=== PATIENT | female | born 1980 | race Hispanic/Latino ===

== ENCOUNTER 2022-05-06 11:01 | Emergency (ER) | payer OTHER ==
--- OUTSIDE RECORDS SUMMARY | 2022-05-06 11:05 | XMS REPORT | Continuity of Care Document ---
:1980 Author Organization [facility] t Address [address] [place] [address] Care Team Providers Name Role Phone FOUND, NOT Primary Care Physician Unavailable Kristina ROWLAND Attending Clinician Unavailable Vineet Colunga Attending Clinician Unavailable Sukhdeep Admitting Clinician Unavailable Payers Payer Name Policy Type Policy Number Effective Date Expiration Date S ource Problems Condition Condition Condition Status Onset Resolution Last Treating Co mments Source Name Details Category Date Date Treatment Clinician Date Problem Condition [facility] Cyst of Problem Active [facility] Abdominal Problem Active [facility] Allergies, Adverse Reactions, Alerts Allergy Allergy Status Severity Reaction(s) Onset Inactive Treating Comm ents Source Name Type Date Date Clinician NO KNOWN Allergy Active Unknown [facility] ALLERGY to 3-24 S substanc 00:00: Health e 00 No Known DA Active U 2014-12 [facility]ie [facility] 00:00: [address] No Known DA Active U 2014-12 [facility] Allergie 0-27 [facility] s 00:00: [address] Center Social History Social Habit Start Date Stop Date Quantity Comments Source Sex Assigned At [birth year] Female [facility] Health 00:00:00 00:00:00 Smoking Status Start Date Stop Date Source Unknown if ever smoked [facility] Medications Ordered Filled Start Stop Current Ordering Indication Dosage Frequency Signature Comments Components Source Medication Medication Date Date Medication? Clinician (SIG) Name Name Cephalexin 2020-0 No 500mg MASTER U (Keflex) 5-[address] 500 Mg CAP 14:29: Elizabe 00 th Cephalexin 2020-0 No 500mg Twice A CHR ISTU (Keflex) 5-05 Day S 500 Mg CAP 14:29: Health 00 Hydralazine 2020-0 No 10mg MASTER U Hcl 5-[address] (Apresoline 14:28: Elizab e ) 10 Mg TAB 00 th Metoclopram 2020-0 No 10mg MASTER U vanessa Hcl 5-[address] (Reglan) 10 14:28: Elizab e Mg TAB 00 th Hydralazine 2020-0 No 10mg Four Times [facility] Hcl 5-05 Daily S (Apresoline 14:28: Health ) 10 Mg TAB 00 Metoclopram 2020-0 No 10mg Three AFTAB TU vanessa Hcl 5-05 Times A S (Reglan) 10 14:28: Day Health Mg TAB 00 Dicyclomine 2020-0 No 20mg MASTER U Hcl 3-[address] (Bentyl) 20 08:53: Elizab e Mg TAB 00 th Dicyclomine 2020-0 No 20mg MASTER U Hcl 3-[address] (Bentyl) 20 08:53: Elizab e Mg TAB 00 th Dicyclomine 2020-0 No 20mg Four Times [facility] Hcl 3-24 Daily S (Bentyl) 20 08:53: Health Mg TAB 00 Dicyclomine 2020-0 No 20mg Four Times [facility] Hcl 3-24 Daily S (Bentyl) 20 08:53: Health Mg TAB 00 Vital Signs Vital Name Observation Time Observation Value Comments Source Body Temperature 2020-04-05 14:56:00 98.0 [degF] [facility] Rate 2020-04-05 14:56:00 74 /min [facility] Respiratory rate 2020-04-05 14:56:00 18 /min [facility] [employer] BP Systolic 2020-04-05 14:56:00 186 mm[Hg] [facility] BP Diastolic 2020-04-05 14:56:00 110 mm[Hg] [facility] Heart Rate 2020-04-05 14:51:00 74 /min [facility] [employer] Respiratory rate 2020-04-05 14:51:00 18 /min [facility] [employer] [facility] BP Systolic 2020-04-05 14:51:00 186 mm[Hg] [facility] BP Diastolic 2020-04-05 14:51:00 110 mm[Hg] [facility] Weight 2020-04-05 11:38:00 153.31 [lb_av] [facility] BMI (Body Mass Index) 2020-04-05 11:38:00 27.2 kg/m2 [facility] Heart Rate 2020-02-23 09:17:00 76 /min [facility] Respiratory rate 2020-02-23 09:17:00 16 /min [employer] [facility] BP Systolic 2020-02-23 09:17:00 163 mm[Hg] [facility] BP Diastolic 2020-02-23 09:17:00 99 mm[Hg] [facility] Body Temperature 2020-02-23 07:09:00 97.9 [degF] [facility] Heart Rate 2020-02-23 07:09:00 62 /min [facility] Respiratory rate 2020-02-23 07:09:00 20 /min [facility] BP Systolic 2020-02-23 07:09:00 162 mm[Hg] [facility] BP Diastolic 2020-02-23 07:09:00 112 mm[Hg] [facility] Procedures Procedure Date / Time Performed Performing Clinician [facility] e Computed tomography of 2020-02-23 00:00:00 [facility] abdomen and pelvis with contrast Plan of Care Planned Activity Planned Date Details Comments Source Future Scheduled Test Bacterial urine [facility] culture [code = Jenny 630-4] Future Scheduled Test Bacterial urine [facility] culture [code = Jenny 630-4] Goal Patient referral [facility] [code = 5305086 ] Jenny Goal Patient referral [facility] [code = 3845745 ] Jenny Goal Patient referral [facility] [code = 4462800 ] Jenny Instructions Acute Abdomen (Belly [facility] S [facility] Pain), Adult (DC) Jenny Instructions Ovarian Cyst (DC) [facility] t. Jenny Instructions High Blood Pressure [facility] in Adults Jenny Instructions Urinary Tract [facility] Infection, Adult (DC) Elizab eth Encounters Start End Encounter Admission Attending Care Care Encounter Source Date/Time Date/Time Type Type Clinicians Facility Department ID 2020-07-01 Inpatient [facility] ER [id number] [facility] 19:20:00 [id number] [facility] 2020-05-05 Inpatient [facility] ER [id number] [facility] 20:34:00 [id number] [facility] 2020-04-05 Inpatient MUNIRA LOMBARDO [id number] [facility] 11:34:00 [facility] 2020-02-23 Inpatient MUNIRA ROWLAND [id number] [facility] 06:11:00 IVERSON [id number] [facility] 2021-05-06 2021-05-06 Emergency EM Dillon, [facility] ER [id number] [facility] 10:22:00 12:00:00 Aries [id number] [facility] 2020-04-05 2020-04-05 Departed JANIA LOMBARDO [id number] [facility] 11:50:00 14:57:[address] 2020-04-05 2020-04-05 Departed CHRISTHUNG LOMBARDO [id number] [facility] 11:50:00 14:57:[address] [facility] [address] Room [facility] 2020-02-23 2020-02-23 Registered CHRISTHUNG LOMBARDO AE00 [id number] [facility] 06:17:00 06:17:[address] 2020-02-23 2020-02-23 Registered CHRISTHUNG LOMBARDO AE00 [id number] [facility] 06:17:00 06:17:[address] Results Test Description Test Time Test Comments Results Result Comments Source COMPREHENSIVE METABOLIC PANEL 2020-05-05 21:46:00 Test Item Value Reference Range Interpretation Comme nts SODIUM (test code = NA) 135 MMOL/L 133-145 N POTASSIUM (test code = K) 2.9 MMOL/L 3.6-5.2 LL CHLORIDE (test code = CL) 100 MMOL/L 100-108 N CARBON DIOXIDE (test code = 23 MMOL/L 22-32 N CO2) GLUCOSE (test code = GLU) 115 MG/DL 65-99 H Re sults of this assay method may be falsely depressed orelevated if p atient is taking sulfasal azine. BLOOD UREA NITROGEN (test code 7 MG/DL 6-20 N = BUN) GLOMERULAR FILTRATION RATE 99 58-135 N R eporting units: (test code = GFR) mL/min/1.7 3m\S\2 (Modified MDRD Formula) CREATININE (test code = CREAT) 0.66 MG/DL 0.60-1.00 N TOTAL PROTEIN (test code = 7.6 G/DL 6.4-8.2 N PROT) ALBUMIN (test code = ALB) 3.5 G/DL 3.4-5.0 N GLOBULIN (test code = GLOB) 4.1 G/DL 1.5-3.8 H ALBUMIN/GLOBULIN RATIO (test 0.9 1.1-2.2 L code = A/G) CALCIUM (test code = CA) 8.5 MG/DL 8.7-10.5 L BILIRUBIN TOTAL (test code = 0.3 MG/DL 0.0-1.0 N BILT) SGOT/AST (test code = AST) 13 Units/L 15-37 L R esults of this assay method may be falsely depressed orelevated if p atient is taking sulfasal azine. SGPT/ALT (test code = ALT) 16 Units/L 30-65 L R esults of this assay method may be falsely depressed orelevated if p atient is taking sulfasal azine. ALKALINE PHOSPHATASE TOTAL 57 Units/L 50-136 N (test code = ALKP) URIC [id number] 21:46:00 Test Item Value Reference Range Interpretation Comments URIC ACID (test code = URIC) 2.7 MG/DL 2.6-6.0 N [id number] 21:46:00 Test Item Value Reference Range Interpretation Comments MAGNESIUM (test code = MAG) 1.8 MG/DL 1.8-2.4 N THYROID STIMULATING [id number] 21:46:00 Test Item Value Reference Range Interpretation Comments THYROID STIMULATING 0.55 0.42-5.47 N Micro-In ternational HORMONE (test code = TSH) Un its/L CPK-MB [id number] 21:46:00 Test Item Value Reference Range Interpretation Comments CK (test code = 37 Units/L 26-192 N CKT) CKMB (test code = < 0.5 NG/ML 0.0-3.6 N CKMB sugge stive of CKMBT) non-AMI; MB Ind ex is not reported. CV CALL [id number] 21:46:00 Test Item Value Reference Range Interpretation Comments CV CALL CHEM (test code = CVC) COMPREHENSIVE METABOLIC [id number] 21:46:00 Test Item Value Reference Range Interpretation Comments SODIUM (test code = 135 MMOL/L 133-145 N NA) POTASSIUM (test code = 2.9 MMOL/L 3.6-5.2 LL K) CHLORIDE (test code = 100 MMOL/L 100-108 N CL) CARBON DIOXIDE (test 23 MMOL/L 22-32 N code = CO2) GLUCOSE (test code = 115 MG/DL 65-99 H Results of this assay GLU) method may be f alsely depressed orele vated if patient is t aking sulfasalazine. BLOOD UREA NITROGEN 7 MG/DL 6-20 N (test code = BUN) GLOMERULAR FILTRATION 99 58-135 N Report ing units: RATE (test code = GFR) mL/mi n/1.73m\S\2 (Modified MDRD Formula) CREATININE (test code 0.66 MG/DL 0.60-1.00 N = CREAT) TOTAL PROTEIN (test 7.6 G/DL 6.4-8.2 N code = PROT) ALBUMIN (test code = 3.5 G/DL 3.4-5.0 N ALB) GLOBULIN (test code = 4.1 G/DL 1.5-3.8 H GLOB) ALBUMIN/GLOBULIN RATIO 0.9 1.1-2.2 L (test code = A/G) CALCIUM (test code = 8.5 MG/DL 8.7-10.5 L CA) BILIRUBIN TOTAL (test 0.3 MG/DL 0.0-1.0 N code = BILT) SGOT/AST (test code = 13 Units/L 15-37 L Result s of this assay AST) method may be f alsely depressed orele vated if patient is t aking sulfasalazine. SGPT/ALT (test code = 16 Units/L 30-65 L Result s of this assay ALT) method may be f alsely depressed orele vated if patient is t aking sulfasalazine. ALKALINE PHOSPHATASE 57 Units/L 50-136 N TOTAL (test code = ALKP) URIC [id number] 21:46:00 Test Item Value Reference Range Interpretation Comments URIC ACID (test code = URIC) 2.7 MG/DL 2.6-6.0 N [id number] 21:46:00 Test Item Value Reference Range Interpretation Comments MAGNESIUM (test code = MAG) 1.8 MG/DL 1.8-2.4 N THYROID STIMULATING [id number] 21:46:00 Test Item Value Reference Range Interpretation Comments THYROID STIMULATING 0.55 0.42-5.47 N Micro-In ternational HORMONE (test code = TSH) Un its/L CPK-MB [id number] 21:46:00 Test Item Value Reference Range Interpretation Comments CK (test code = 37 Units/L 26-192 N CKT) CKMB (test code = < 0.5 NG/ML 0.0-3.6 N CKMB sugge stive of CKMBT) non-AMI; MB Ind ex is not reported. CV CALL [id number] 21:46:00 Test Item Value Reference Range Interpretation Comments CV CALL CHEM (test Called Results c alled to and read code = CVC) back by RAYO DANIELSON RN;.for analyte (s): POTASSIUM .at 2 146 - 05/05/20; by DPeggy LAB.MG. UA RFLX MICROSCOPIC [id number] 21:30:00 Test Item Value Reference Range Interpretation Comments UA COLOR (test code = COLU) YELLOW YELLOW UA APPEARANCE (test code = CLEAR CLEAR APPU) UA GLUCOSE DIPSTICK (test NEGATIVE mg/dL NEGATIVE code = DGLUU) UA BILIRUBIN DIPSTICK (test NEGATIVE NEGATIVE code = BILU) UA KETONE DIPSTICK (test 150 mg/dL NEGATIVE A code = KETU) UA SPECIFIC GRAVITY (test 1.015 1.001-1.035 N code = SGU) UA BLOOD DIPSTICK (test code NEGATIVE NEGATIVE = ESSIE) UA PH DIPSTICK (test code = 7.0 5.5-7.0 N NENITA) UA PROTEIN DIPSTICK (test NEGATIVE mg/dL NEGATIVE code = PROU) UA UROBILINOGEN DIPSTICK NORMAL mg/dL NORMAL (test code = URO) UA NITRITE DIPSTICK (test NEGATIVE NEGATIVE code = JASON) UA LEUKOCYTE ESTERASE NEGATIVE NEGATIVE DIPSTICK (test code = LEUU) UA COMMENT (test code = VOLUME 10-12 ML COMU) URINE SPECIMEN DESCRIPTION Clean Catch (test code = UASPEC) UA WBC (test code = WBCU) < 10 #/hpf <10 UA SQUAMOUS CELLS (test code > 100 #/lpf <100 A = SQU) UA CULTURE NEEDED? (test Criteria not met code = UACULT) Indication for culture: Suprapubic PainURINE SOURCE: Clean CatchDRUG OF ABUSE SCREEN [id number] 21:30:00 Test Item Value Reference Interpretation Comments Range UR COCAINE (test NEGATIVE NEGATIVE code = COCAU) UR MDMA (test code = NEGATIVE NEGATIVE MDMAQLU) UR CANNABINOIDS POSITIVE NEGATIVE A If confirmat ory testing (test code = CANU) required, contact laboratory. UR AMPHETAMINE (test NEGATIVE NEGATIVE code = AMPHU) UR BARBITURATE QUAL NEGATIVE NEGATIVE (test code = BARBQLU) UR BENZODIAZEPINE NEGATIVE NEGATIVE (test code = BENZU) UR OPIATES QUAL NEGATIVE NEGATIVE (test code = OPIAQLU) UR PHENCYCLIDINE NEGATIVE NEGATIVE Urine Drug Abuse Screen (PCP) (test code = provides preliminary PHENCU) results thatmay be confirmed by [facility] methods (i.e., GC/MS) at [facility]. Results of scre en may not be usedin crimi nal justice, job performance or professionalcre dential review, or infa nt custody issues. Negativ e [place] Level ng/ml ------- ----- Cocaine 300 Methamp hetamine (Ecstacy) 500 Cannabinoids (THC) 50 Amphetamine 1000 Barbiturate s 200 Benzodia zepines 200 Opiat es 300 Ph encyclidine (PCP) 25 UA RFLX MICROSCOPIC [id number] 21:22:00 Test Item Value Reference Range Interpretation Comments UA COLOR (test code = COLU) YELLOW YELLOW UA APPEARANCE (test code = CLEAR CLEAR APPU) UA GLUCOSE DIPSTICK (test NEGATIVE mg/dL NEGATIVE code = DGLUU) UA BILIRUBIN DIPSTICK (test NEGATIVE NEGATIVE code = BILU) UA KETONE DIPSTICK (test code 150 mg/dL NEGATIVE A = KETU) UA SPECIFIC GRAVITY (test 1.015 1.001-1.035 N code = SGU) UA BLOOD DIPSTICK (test code NEGATIVE NEGATIVE = ESSIE) UA PH DIPSTICK (test code = 7.0 5.5-7.0 N NENITA) UA PROTEIN DIPSTICK (test NEGATIVE mg/dL NEGATIVE code = PROU) UA UROBILINOGEN DIPSTICK NORMAL mg/dL NORMAL (test code = URO) UA NITRITE DIPSTICK (test NEGATIVE NEGATIVE code = JASON) UA LEUKOCYTE ESTERASE NEGATIVE NEGATIVE DIPSTICK (test code = LEUU) UA COMMENT (test code = COMU) VOLUME 10-12 ML URINE SPECIMEN DESCRIPTION Clean Catch (test code = UASPEC) UA WBC (test code = WBCU) #/hpf <10 UA SQUAMOUS CELLS (test code #/lpf <100 = SQU) UA CULTURE NEEDED? (test code = UACULT) Indication for culture: Suprapubic PainURINE SOURCE: Clean CatchCBC W/AUTO [id number] 21:05:00 Test Item Value Reference Range Interpretation Comments WHITE BLOOD CELL (test code = 8.54 x10 3/uL 4.80-10.80 N WBC) RED BLOOD CELL (test code = 4.08 x10 6/uL 4.2-5.4 L RBC) HEMOGLOBIN (test code = HGB) 12.4 G/DL 12.0-16.0 N HEMATOCRIT (test code = HCT) 36.1 % 37-47 L MEAN CELL VOLUME (test code = 88.5 FL 81-99 N MCV) MEAN CELL HGB (test code = MCH) 30.4 PG 27-31 N MEAN CELL HGB CONCENTRATION 34.3 G/DL 33-37 N (test code = MCHC) RED CELL DISTRIBUTION WIDTH 13.2 % 11.5-14.5 N (test code = RDW) PLATELET COUNT (test code = 271 x10 3/uL 150-450 N PLT) MEAN PLATELET VOLUME (test code 9.9 FL 7.4-10.4 N = MPV) NEUTROPHIL % (test code = NT%) 68.0 % 42-86 N LYMPHOCYTE % (test code = LY%) 23.5 % 24-44 L MONOCYTE % (test code = MO%) 6.1 % 0.0-4.0 H EOSINOPHIL % (test code = EO%) 2.3 % 0.0-2.7 N BASOPHIL % (test code = BA%) 0.1 % 0.0-0.5 N NEUTROPHIL # (test code = NT#) 5.80 x10 3/uL 1.8-7.7 N LYMPHOCYTE # (test code = LY#) 2.01 x10 3/uL 1.0-4.8 N MONOCYTE # (test code = MO#) 0.52 x10 3/uL 0.0-0.8 N EOSINOPHIL # (test code = EO#) 0.20 x10 3/uL 0.0-0.5 N BASOPHIL # (test code = BA#) 0.01 x10 3/uL 0.0-0.2 N Urinalysis specimen collection [id number] 12:20:00 Test Item Value Reference Range Interpretation Comments Urine Source (test code = 97891-3) URINE [facility] HealthColor of Urine by [id number] 12:20:00 Test Item Value Reference Range Interpretation Comments Urine Color (test code = 03469-5) Yellow Yel-Anahi * [facility] HealthUrine clarity [id number] 12:20:00 Test Item Value Reference Range Interpretation Comments Urine Appearance (test code = 01485-3) Clear Clear * [facility] HealthUrine pH measurement by automated test [id number] 12:20:00 Test Item Value Reference Range Interpretation Comments Urine pH (test code = 09935-7) 6.5 5.0-8.0 [facility] HealthSpecific gravity of Urine by Automated test [id number] 12:20:00 Test Item Value Reference Range Interpretation Comments Urine Specific [place] (test code = 1.024 1.005-1.030 08098-1) [facility] HealthUrine protein measurement by automated test strip (mass/volume) 2020-04-05 12:20:00 Test Item Value Reference Range Interpretation Comments Urine Protein (test code = 48092-9) 20 mg/dL Negative * [facility] HealthUrine glucose measurement by automated test strip (mass/volume) 2020-04-05 12:20:00 Test Item Value Reference Range Interpretation Comments Urine Glucose (UA) (test code Negative mg/dL Negative * = 97410-5) [facility] HealthUrine ketones measurement by automated test strip (mass/volume) 2020-04-05 12:20:00 Test Item Value Reference Range Interpretation Comments Urine Ketones (test code = Negative mg/dL Negative * 47260-0) [facility] HealthUrine erythrocytes count by automated test strip (number/volume) 2020-04-05 12:20:00 Test Item Value Reference Range Interpretation Comments Urine Occult Blood (test code = Negative Negative * 94505-1) [facility] HealthUrine nitrite detection by automated test [id number] 12:20:00 Test Item Value Reference Range Interpretation Comments Urine Nitrite (test code = 40239-9) Negative Negative [facility] HealthUrine total bilirubin measurement by automated test strip (mass/volume)2020-04-05 12:20:00 Test Item Value Reference Range Interpretation Comments Urine Bilirubin (test code = Negative mg/dL Negative 68955-8) [facility] HealthUrine urobilinogen measurement by automated test strip (mass/volume)2020-04-05 12:20:00 Test Item Value Reference Range Interpretation Comments Urine Urobilinogen (test code Negative mg/dL 0.0-1.0 = 27995-3) [facility] HealthUrine leukocytes count by automated test strip (number/volume) 2020-04-05 12:20:00 Test Item Value Reference Range Interpretation Comments Urine Leukocyte Esterase (test 25 {Raul}/uL Negative code = 94103-6) [facility] HealthMicroscopic examination of [id number] 12:20:00 Test Item Value Reference Range Interpretation Comments Microscopic Urinalysis (T) (test code = ----- 12946-7) [facility] HealthUrine sediment erythrocyte count by microscopy (number/high power field)2020-04-05 12:20:00 Test Item Value Reference Range Interpretation Comments Urine RBC (test code = 30866-6) 0-2 /[HPF] 0-2 [facility] HealthUrine sediment leukocyte count by microscopy (number/high power field)2020-04-05 12:20:00 Test Item Value Reference Range Interpretation Comments Urine WBC (test code = 5821-4) 0-5 /[HPF] 0-5 [facility] HealthUrine sediment epithelial cell count by microscopy (number/high power field)2020-04-05 12:20:00 Test Item Value Reference Range Interpretation Comments Urine Epithelial Cells (test code Few /[HPF] Few = 5787-7) [facility] HealthUrine sediment crystal count by microscopy (number/high power field)2020-04-05 12:20:00 Test Item Value Reference Range Interpretation Comments Urine Crystals (test code = None Seen /[HPF] None * 35284-7) [facility] HealthUrine sediment bacteria count by microscopy (number/high power field)2020-04-05 12:20:00 Test Item Value Reference Range Interpretation Comments Urine Bacteria (test code = Frequent /[HPF] None 5769-5) [facility] HealthUrine sediment casts count by microscopy (number/low power field) 2020-04-05 12:20:00 Test Item Value Reference Range Interpretation Comments Urine Casts (test code = Present /[LPF] None * 9842-6) [facility] HealthUrine sediment hyaline cast count by microscopy (number/low power field)2020-04-05 12:20:00 Test Item Value Reference Range Interpretation Comments Urine Hyaline Casts (test code = 6-10 /[LPF] 0-1 5796-8) [facility] HealthYeast detection in urine sediment by light [id number] 12:20:00 Test Item Value Reference Range Interpretation Comments Urine Yeast (test code = None Seen /[HPF] None 16104-6) [facility] comment 12:20:00 Test Item Value Reference Range Interpretation Comments Urinalysis Comment (test * See_Comment [A utomated message] The code = 8262-8) system which generated this result tra nsmitted reference range : *. The reference range was not used to interpr et this result as normal/abnormal . [facility] comment 12:20:00 Test Item Value Reference Range Interpretation Comments Urine Culture Indicated (test code To follow = 8264-4) [facility] HealthUrinalysis specimen collection [id number] 12:20:00 Test Item Value Reference Range Interpretation Comments Urine Source (test code = 47886-8) URINE [facility] Urine by [id number] 12:20:00 Test Item Value Reference Range Interpretation Comments Urine Color (test code = 06297-6) Yellow [facility] ElizabethUrine clarity [id number] 12:20:00 Test Item Value Reference Range Interpretation Comments Urine Appearance (test code = 46822-3) Clear [facility] ElizabethUrine pH measurement by automated test [id number] 12:20:00 Test Item Value Reference Range Interpretation Comments Urine pH (test code = 18348-4) 6.[address] JudythSpecific gravity of Urine by Automated test strip 2020-04-05 12:20:00 Test Item Value Reference Range Interpretation Comments Urine Specific [place] (test code = 1.024 71919-3) [facility] AdelinabethUrine protein measurement by automated test strip (mass/volume)2020-04-05 12:20:00 Test Item Value Reference Range Interpretation Comments Urine Protein (test code = 14019-5) 20 mg/dL [facility] JudythUrine glucose measurement by automated test strip (mass/volume)2020-04-05 12:20:00 Test Item Value Reference Range Interpretation Comments Urine Glucose (UA) (test code Negative mg/dL = 06880-6) [facility] JudythUrine ketones measurement by automated test strip (mass/volume)2020-04-05 12:20:00 Test Item Value Reference Range Interpretation Comments Urine Ketones (test code = Negative mg/dL 82367-1) [facility] JennyUrine erythrocytes count by automated test strip (number/volume)2020-04-05 12:20:00 Test Item Value Reference Range Interpretation Comments Urine Occult Blood (test code = Negative 96437-1) [facility] JudythUrine nitrite detection by automated test [id number] 12:20:00 Test Item Value Reference Range Interpretation Comments Urine Nitrite (test code = 35618-8) Negative [facility] JennyUrine total bilirubin measurement by automated test strip (mass/volume)2020-04-05 12:20:00 Test Item Value Reference Range Interpretation Comments Urine Bilirubin (test code = Negative mg/dL 96448-4) [facility] ElifortunatobethUrine urobilinogen measurement by automated test strip (mass/volume)2020-04-05 12:20:00 Test Item Value Reference Range Interpretation Comments Urine Urobilinogen (test code Negative mg/dL = 78966-2) [facility] ElifortunatobethUrine leukocytes count by automated test strip (number/volume)2020-04-05 12:20:00 Test Item Value Reference Range Interpretation Comments Urine Leukocyte Esterase (test 25 {Raul}/uL code = 91074-2) MUNIRA CanasMicroscopic examination of [id number] 12:20:00 Test Item Value Reference Range Interpretation Comments Microscopic Urinalysis (T) (test code = ----- 04509-4) MUNIRA StPeggy Keith sediment erythrocyte count by microscopy (number/high power field)2020-04-05 12:20:00 Test Item Value Reference Range Interpretation Comments Urine RBC (test code = 41224-4) 0-2 /[HPF] [facility] leukocyte count by microscopy (number/high power field)2020-04-05 12:20:00 Test Item Value Reference Range Interpretation Comments Urine WBC (test code = 5821-4) 0-5 /[HPF] [facility] sediment epithelial cell count by microscopy (number/high power field)2020-04-05 12:20:00 Test Item Value Reference Range Interpretation Comments Urine Epithelial Cells (test code Few /[HPF] = 5787-7) [facility]UN[facility] StPeggy [facility]Saint [facility] sediment crystal count by microscopy (number/high power field)2020-04-05 12:20:00 Test Item Value Reference Range Interpretation Comments Urine Crystals (test code = None Seen /[HPF] 92242-9) [facility] count by microscopy (number/high power field)2020-04-05 12:20:00 Test Item Value Reference Range Interpretation Comments Urine Bacteria (test code = Frequent /[HPF] 5769-5) MUNIRA StPeggy Keith sediment casts count by microscopy (number/low power field)2020-04-05 12:20:00 Test Item Value Reference Range Interpretation Comments Urine Casts (test code = Present /[LPF] 9842-6) [facility] sediment hyaline cast count by microscopy (number/low power field)2020-04-05 12:20:00 Test Item Value Reference Range Interpretation Comments Urine Hyaline Casts (test code = 6-10 /[LPF] 5796-8) [facility]ast detection in urine sediment by light microscopy 2020-04-05 12:20:00 Test Item Value Reference Range Interpretation Comments Urine Yeast (test code = None Seen /[HPF] 30547-5) [facility] 12:20:00 Test Item Value Reference Range Interpretation Comments Urinalysis Comment (test code = 8262-8) * [facility] comment 12:20:00 Test Item Value Reference Range Interpretation Comments Urine Culture Indicated (test code To follow = 8264-4) MUNIRA CanasGFR estimate [id number] 12:05:00 Test Item Value Reference Range Interpretation Comments Estimat Glomerular Filtration Rate 145 73-125 (test code = 81405-0) [facility] blood hemoglobin measurement (mass/volume)2020-04-05 12:05:00 Test Item Value Reference Range Interpretation Comments Bedside Hemoglobin (test code = 13.9 g/dL 12.0-15.2 56079-1) [facility] Health[facility] blood hematocrit (volume fraction)2020-04-05 12:05:00 Test Item Value Reference Range Interpretation Comments Bedside Hematocrit (test code = 41.0 % 35.0-45.0 24287-4) [facility] whole blood sodium measurement (moles/volume)2020-04-05 12:05:00 Test Item Value Reference Range Interpretation Comments Bedside Sodium (test code = 136 mmol/L 136-145 71736-5) [facility] whole blood potassium measurement (moles/volume)2020-04-05 12:05:00 Test Item Value Reference Range Interpretation Comments Bedside Potassium (test code = 3.5 mmol/L 3.5-5.1 95173-6) [facility] whole blood chloride measurement (moles/volume)2020-04-05 12:05:00 Test Item Value Reference Range Interpretation Comments Bedside Chloride (test code = 100 mmol/L 100-112 77128-7) [facility] whole blood total carbon dioxide measurement (moles/volume)2020-04-05 12:05:00 Test Item Value Reference Range Interpretation Comments Bedside Total CO2 (test code = 25.0 mmol/L 24.0-33.0 2026-12) [facility] whole blood urea nitrogen (BUN) measurement (mass/volume) 2020-04-05 12:05:00 Test Item Value Reference Range Interpretation Comments Bedside Blood Urea Nitrogen (test 7 mg/dL 6-20 code = 98777-2) [facility] ([facility])2020-04-05 12:05:00 Test Item Value Reference Range Interpretation Comments Bedside Creatinine (test code = 0.5 mg/dL 0.7-1.3 14852-3) [facility] glucose measurement (mass/volume)2020-04-05 12:05:00 Test Item Value Reference Range Interpretation Comments Bedside Glucose (test code = 99 mg/dL 60-100 05067-0) [facility] measurement (moles/volume)2020-04-05 12:05:00 Test Item Value Reference Range Interpretation Comments Bedside Whole Blood Ionized 1.26 mmol/L 1.12-1.32 Calcium (test code = 1994-3) [facility] anion [id number] 12:05:00 Test Item Value Reference Range Interpretation Comments Bedside Anion Gap (test code = 26165-2) 16 8-18 [facility] whole blood sodium measurement (moles/volume)2020-04-05 12:05:00 Test Item Value Reference Range Interpretation Comments Bedside Sodium (test code = 136 mmol/L 33295-1) [facility] potassium measurement (moles/volume) 2020-04-05 12:05:00 Test Item Value Reference Range Interpretation Comments Bedside Potassium (test code = 3.5 mmol/L 79104-7) [facility] chloride measurement (moles/volume) 2020-04-05 12:05:00 Test Item Value Reference Range Interpretation Comments Bedside Chloride (test code = 100 mmol/L 63126-3) [facility] total carbon dioxide measurement (moles/volume)2020-04-05 12:05:00 Test Item Value Reference Range Interpretation Comments Bedside Total CO2 (test code = 25.0 mmol/L 2026-1) [facility] blood urea nitrogen (BUN) measurement (mass/volume)2020-04-05 12:05:00 Test Item Value Reference Range Interpretation Comments Bedside Blood Urea Nitrogen (test 7 mg/dL code = 25600-9) [facility] creatinine measurement (mass/volume)2020-04-05 12:05:00 Test Item Value Reference Range Interpretation Comments Bedside Creatinine (test code = 0.5 mg/dL 88274-2) [facility] whole blood glucose measurement (mass/volume) 2020-04-05 12:05:00 Test Item Value Reference Range Interpretation Comments Bedside Glucose (test code = 99 mg/dL 85718-3) [facility] calcium measurement (moles/volume) 2020-04-05 12:05:00 Test Item Value Reference Range Interpretation Comments Bedside Whole Blood Ionized 1.26 mmol/L Calcium (test code = 1994-3) [facility] [id number] 12:05:00 Test Item Value Reference Range Interpretation Comments Bedside Anion Gap (test code = 39901-4) 16 [facility] [id number] 12:05:00 Test Item Value Reference Range Interpretation Comments Estimat Glomerular Filtration Rate 145 (test code = 99134-9) [facility] blood hemoglobin measurement (mass/volume) 2020-04-05 12:05:00 Test Item Value Reference Range Interpretation Comments Bedside Hemoglobin (test code = 13.9 g/dL 71783-3) [facility] blood hematocrit (volume fraction)2020-04-05 12:05:00 Test Item Value Reference Range Interpretation Comments Bedside Hematocrit (test code = 41.0 % 51993-4) [facility] HospitalUrinalysis specimen collection [id number] 06:56:00 Test Item Value Reference Range Interpretation Comments Urine Source (test code = 21908-2) URINE [facility]rine by [id number] 06:56:00 Test Item Value Reference Range Interpretation Comments Urine Color (test code = 33171-2) Yellow Yel-Anahi * [facility] HospitalUrine clarity [id number] 06:56:00 Test Item Value Reference Range Interpretation Comments Urine Appearance (test code = Light Turbid Clear * 46871-1) [facility] pH measurement by automated test [id number] 06:56:00 Test Item Value Reference Range Interpretation Comments Urine pH (test code = 85281-0) 6.0 5.0-8.0 [facility] HealthSpecific gravity of Urine by Automated test [id number] 06:56:00 Test Item Value Reference Range Interpretation Comments Urine Specific [place] (test code = 1.028 1.005-1.030 64740-2) [facility] HealthUrine protein measurement by automated test strip (mass/volume) 2020-02-23 06:56:00 Test Item Value Reference Range Interpretation Comments Urine Protein (test code = 64312-9) 20 mg/dL Negative * [facility] Health[facility]rine glucose measurement by automated test strip (mass/volume) 2020-02-23 06:56:00 Test Item Value Reference Range Interpretation Comments Urine Glucose (UA) (test code Negative mg/dL Negative * = 34582-9) [facility] Health[facility]rine ketones measurement by automated test strip (mass/volume) 2020-02-23 06:56:00 Test Item Value Reference Range Interpretation Comments Urine Ketones (test code = Negative mg/dL Negative * 16741-2) [facility] erythrocytes count by automated test strip (number/volume) 2020-02-23 06:56:00 Test Item Value Reference Range Interpretation Comments Urine Occult Blood (test code = Negative Negative * 83695-8) [facility] HealthUrine nitrite detection by automated test [id number] 06:56:00 Test Item Value Reference Range Interpretation Comments Urine Nitrite (test code = 55056-0) Negative Negative [facility] total bilirubin measurement by automated test strip (mass/volume)2020-02-23 06:56:00 Test Item Value Reference Range Interpretation Comments Urine Bilirubin (test code = Negative mg/dL Negative 04067-4) [facility] HealthUrine urobilinogen measurement by automated test strip (mass/volume)2020-02-23 06:56:00 Test Item Value Reference Range Interpretation Comments Urine Urobilinogen (test code Negative mg/dL 0.0-1.0 = 86532-9) [facility]rine leukocytes count by automated test strip (number/volume) 2020-02-23 06:56:00 Test Item Value Reference Range Interpretation Comments Urine Leukocyte Esterase (test 25 {Raul}/uL Negative code = 34840-3) [facility] HealthMicroscopic examination of [id number] 06:56:00 Test Item Value Reference Range Interpretation Comments Microscopic Urinalysis (T) (test code = ----- 66801-9) [facility] sediment erythrocyte count by microscopy (number/high power field)2020-02-23 06:56:00 Test Item Value Reference Range Interpretation Comments Urine RBC (test code = 14473-4) 0-2 /[HPF] 0-2 [facility] sediment leukocyte count by microscopy (number/high power field)2020-02-23 06:56:00 Test Item Value Reference Range Interpretation Comments Urine WBC (test code = 5821-4) 6-20 /[HPF] 0-5 [facility]rine sediment epithelial cell count by microscopy (number/high power field)2020-02-23 06:56:00 Test Item Value Reference Range Interpretation Comments Urine Epithelial Cells (test code Many /[HPF] Few = 5787-7) [facility] Health[facility] sediment crystal count by microscopy (number/high power field)2020-02-23 06:56:00 Test Item Value Reference Range Interpretation Comments Urine Crystals (test code = None Seen /[HPF] None * 40900-7) [facility] count by microscopy (number/high power field)2020-02-23 06:56:00 Test Item Value Reference Range Interpretation Comments Urine Bacteria (test code = Packed /[HPF] None 5769-5) [facility] sediment casts count by microscopy (number/low power field) 2020-02-23 06:56:00 Test Item Value Reference Range Interpretation Comments Urine Casts (test code = Present /[LPF] None * 9842-6) [facility] Health[facility] sediment hyaline cast count by microscopy (number/low power field)2020-02-23 06:56:00 Test Item Value Reference Range Interpretation Comments Urine Hyaline Casts (test code = >20 /[LPF] 0-1 5796-8) [facility] HealthYeast detection in urine sediment by light [id number] 06:56:00 Test Item Value Reference Range Interpretation Comments Urine Yeast (test code = None Seen /[HPF] None 02637-3) [facility] comment 06:56:00 Test Item Value Reference Range Interpretation Comments Urinalysis Comment (test * See_Comment [A utomated message] The code = 8262-8) system which generated this result tra nsmitted reference range : *. The reference range was not used to interpr et this result as normal/abnormal . [facility] comment [id number] 06:56:00 Test Item Value Reference Range Interpretation Comments Urine Culture Indicated (test code To follow = 8264-4) [facility] HealthUrine protein measurement by automated test strip (mass/volume) 2020-02-23 06:56:00 Test Item Value Reference Range Interpretation Comments Urine Protein (test code = 85352-1) 20 mg/dL [facility] JudythUrine glucose measurement by automated test strip (mass/volume)2020-02-23 06:56:00 Test Item Value Reference Range Interpretation Comments Urine Glucose (UA) (test code Negative mg/dL = 05179-3) [facility] AdelinabethUrine ketones measurement by automated test strip (mass/volume)2020-02-23 06:56:00 Test Item Value Reference Range Interpretation Comments Urine Ketones (test code = Negative mg/dL 56698-1) [facility] AdelinabethUrine erythrocytes count by automated test strip (number/volume)2020-02-23 06:56:00 Test Item Value Reference Range Interpretation Comments Urine Occult Blood (test code = Negative 00038-5) [facility] AdelinabethUrine nitrite detection by automated test [id number] 06:56:00 Test Item Value Reference Range Interpretation Comments Urine Nitrite (test code = 33682-4) Negative [facility] ElifortunatobethUrine total bilirubin measurement by automated test strip (mass/volume)2020-02-23 06:56:00 Test Item Value Reference Range Interpretation Comments Urine Bilirubin (test code = Negative mg/dL 73502-2) [facility] ElifortunatobethUrine urobilinogen measurement by automated test strip (mass/volume)2020-02-23 06:56:00 Test Item Value Reference Range Interpretation Comments Urine Urobilinogen (test code Negative mg/dL = 75993-0) [facility] leukocytes count by automated test strip (number/volume)2020-02-23 06:56:00 Test Item Value Reference Range Interpretation Comments Urine Leukocyte Esterase (test 25 {Raul}/uL code = 19610-5) [facility] ElizabethMicroscopic examination of [id number] 06:56:00 Test Item Value Reference Range Interpretation Comments Microscopic Urinalysis (T) (test code = ----- 16522-2) [facility] erythrocyte count by microscopy (number/high power field)2020-02-23 06:56:00 Test Item Value Reference Range Interpretation Comments Urine RBC (test code = 19350-4) 0-2 /[HPF] [facility] leukocyte count by microscopy (number/high power field)2020-02-23 06:56:00 Test Item Value Reference Range Interpretation Comments Urine WBC (test code = 5821-4) 6-20 /[HPF] [facility] epithelial cell count by microscopy (number/high power field)2020-02-23 06:56:00 Test Item Value Reference Range Interpretation Comments Urine Epithelial Cells (test code Many /[HPF] = 5787-7) [facility] crystal count by microscopy (number/high power field)2020-02-23 06:56:00 Test Item Value Reference Range Interpretation Comments Urine Crystals (test code = None Seen /[HPF] 06882-2) [facility] bacteria count by microscopy (number/high power field)2020-02-23 06:56:00 Test Item Value Reference Range Interpretation Comments Urine Bacteria (test code = Packed /[HPF] 5769-5) [facility] sediment casts count by microscopy (number/low power field)2020-02-23 06:56:00 Test Item Value Reference Range Interpretation Comments Urine Casts (test code = Present /[LPF] 9842-6) [facility] sediment hyaline cast count by microscopy (number/low power field)2020-02-23 06:56:00 Test Item Value Reference Range Interpretation Comments Urine Hyaline Casts (test code = >20 /[LPF] 5796-8) MUNIRA Conroy. Joleneeast detection in urine sediment by light microscopy 2020-02-23 06:56:00 Test Item Value Reference Range Interpretation Comments Urine Yeast (test code = None Seen /[HPF] 07781-6) [facility] comment [id number] 06:56:00 Test Item Value Reference Range Interpretation Comments Urinalysis Comment (test code = 8262-8) * MUNIRA Gomezervice comment 06:56:00 Test Item Value Reference Range Interpretation Comments Urine Culture Indicated (test code To follow = 8264-4) MUNIRA CanasUrinalysis specimen collection [id number] 06:56:00 Test Item Value Reference Range Interpretation Comments Urine Source (test code = 02328-6) URINE MUNIRA CanasColor of Urine by [id number] 06:56:00 Test Item Value Reference Range Interpretation Comments Urine Color (test code = 13241-2) Yellow MUNIRA CanasUrine clarity [id number] 06:56:00 Test Item Value Reference Range Interpretation Comments Urine Appearance (test code = Light Turbid 83326-4) MUNIRA Mendenhall pH measurement by automated test [id number] 06:56:00 Test Item Value Reference Range Interpretation Comments Urine pH (test code = 20597-7) 6.0 MUNIRA Gomezpecific gravity of Urine by Automated test strip 2020-02-23 06:56:00 Test Item Value Reference Range Interpretation Comments Urine Specific [place] (test code = 1.028 00549-5) MUNIRA CanasAutomated blood leukocyte count (number/volume)2020-02-23 06:37:00 Test Item Value Reference Range Interpretation Comments White Blood Count (test code = 7.6 10*3/uL 4.5-11.5 6690-2) [facility]Blood erythrocytes automated count (number/volume)2020-02-23 06:37:00 Test Item Value Reference Range Interpretation Comments Red Blood Count (test code = 4.83 10*6/uL 3.8-5.1 789-8) [facility] HealthBlood hemoglobin measurement (mass/volume)2020-02-23 06:37:00 Test Item Value Reference Range Interpretation Comments Hemoglobin (test code = 718-7) 14.4 g/dL 12.0-15.2 [facility] HealthAutomated blood hematocrit (volume fraction)2020-02-23 06:37:00 Test Item Value Reference Range Interpretation Comments Hematocrit (test code = 4544-3) 44.1 % 34.0-45.5 [facility] HealthAutomated erythrocyte mean corpuscular volume (MCV) measurement 2020-02-23 06:37:00 Test Item Value Reference Range Interpretation Comments Mean Corpuscular Volume (test code = 91 fL 80-94 787-2) [facility] HealthAutomated erythrocyte mean corpuscular hemoglobin (mass per erythrocyte)2020-02-23 06:37:00 Test Item Value Reference Range Interpretation Comments Mean Corpuscular Hemoglobin (test 29.8 pg 27.0-33.0 code = 785-6) [facility] HealthAutomated erythrocyte mean corpuscular hemoglobin concentration measurement (mass/[id number] 06:37:00 Test Item Value Reference Range Interpretation Comments Mean Corpuscular Hemoglobin Concent 32.7 g/dL 33.0-37.0 (test code = 786-4) [facility] HealthAutomated erythrocyte distribution width [id number] 06:37:00 Test Item Value Reference Range Interpretation Comments Red Cell Distribution Width (test code 13.7 % 10.7-14.5 = 788-0) [facility] HealthAutomated blood platelet count (count/volume)2020-02-23 06:37:00 Test Item Value Reference Range Interpretation Comments Platelet Count (test code = 291 10*3/uL 150-450 777-3) [facility] HealthAutomated blood platelet mean volume [id number] 06:37:00 Test Item Value Reference Range Interpretation Comments Mean Platelet Volume (test code = 10.1 5.7-10.7 85249-1) [facility] HealthAutomated blood neutrophil count as percentage of total [id number] 06:37:00 Test Item Value Reference Range Interpretation Comments Neutrophils (%) (Auto) (test code = 58 % 47-75 770-8) [facility] HealthAutomated blood immature granulocyte count as percentage of total [id number] 06:37:00 Test Item Value Reference Range Interpretation Comments Immature Granulocyte % (Auto) (test 0 % 0-0 code = 94962-3) [facility] HealthAutomated blood lymphocyte count as percentage of total mvvcvlkrim5489-94-88 06:37:00 Test Item Value Reference Range Interpretation Comments Lymphocytes (%) (Auto) (test code = 31 % 25-44 736-9) [facility] HealthAutomated blood monocyte count as percentage of total leukocytes 2020-02-23 06:37:00 Test Item Value Reference Range Interpretation Comments Monocytes (%) (Auto) (test code = 6 % 3-10 5905-5) [facility] HealthAutomated blood eosinophil count as percentage of total [id number] 06:37:00 Test Item Value Reference Range Interpretation Comments Eosinophils (%) (Auto) (test code = 3 % 0-7 713-8) [facility] HealthAutomated blood basophil count as percentage of total leukocytes 2020-02-23 06:37:00 Test Item Value Reference Range Interpretation Comments Basophils (%) (Auto) (test code = 1 % 0-1 706-2) [facility] HealthAutomated blood nucleated erythrocyte count as percentage of total [id number] 06:37:00 Test Item Value Reference Range Interpretation Comments Nucleated Red Blood Cells % (test code 0.0 % 0-0.2 = 34864-8) [facility] HealthAutomated blood neutrophil count (number/volume)2020-02-23 06:37:00 Test Item Value Reference Range Interpretation Comments Neutrophils # (Auto) (test code = 4.4 10*3/uL 1.3-6.7 751-8) [facility] HealthAutomated blood immature granulocyte count as percentage of total [id number] 06:37:00 Test Item Value Reference Range Interpretation Comments Immature Granulocyte # (Auto) 0.0 10*3/uL 0.0-0.0 (test code = 27634-9) [facility] HealthAutomated blood lymphocyte count (number/volume)2020-02-23 06:37:00 Test Item Value Reference Range Interpretation Comments Lymphocytes # (Auto) (test code = 2.4 10*3/uL 1.4-4.1 731-0) [facility] HealthBlood monocytes automated count (number/volume)2020-02-23 06:37:00 Test Item Value Reference Range Interpretation Comments Monocytes # (Auto) (test code = 0.5 10*3/uL 0-1.3 742-7) [facility] HealthAutomated blood eosinophil [id number] 06:37:00 Test Item Value Reference Range Interpretation Comments Eosinophils # (Auto) (test code = 0.3 10*3/uL 0-0.8 711-2) [facility] HealthAutomated blood basophil count (number/volume)2020-02-23 06:37:00 Test Item Value Reference Range Interpretation Comments Basophils # (Auto) (test code = 0.1 10*3/uL 0-0.1 704-7) [facility] HealthAutomated blood nucleated erythrocyte count (count/volume) 2020-02-23 06:37:00 Test Item Value Reference Range Interpretation Comments Nucleated Red Blood Cells # 0.00 10*3/uL 0-0.01 (test code = 771-6) [facility] comment [id number] 06:37:00 Test Item Value Reference Range Interpretation Comments Manual Differential (test code = Not Ind 8265-1) [facility] HealthSerum or plasma sodium measurement (moles/volume)2020-02-23 06:37:00 Test Item Value Reference Range Interpretation Comments Sodium Level (test code = 2951-2) 136 mmol/L 136-145 [facility] HealthSerum or plasma potassium measurement (moles/volume)2020-02-23 06:37:00 Test Item Value Reference Range Interpretation Comments Potassium Level (test code = 3.7 mmol/L 3.5-5.1 2823-3) [facility] HealthSerum or plasma chloride measurement (moles/volume)2020-02-23 06:37:00 Test Item Value Reference Range Interpretation Comments Chloride Level (test code = 103 mmol/L 98-107 5-0) [facility] HealthSerum or plasma total carbon dioxide measurement (moles/volume) 2020-02-23 06:37:00 Test Item Value Reference Range Interpretation Comments Carbon Dioxide Level (test code = 25 mmol/L 2027-9) [facility] HealthSerum or plasma anion gap determination (moles/volume)2020-02-23 06:37:00 Test Item Value Reference Range Interpretation Comments Anion Gap (test code = 13769-2) 12 8-18 [facility] HealthSerum or plasma urea nitrogen measurement (mass/volume)2020-02-23 06:37:00 Test Item Value Reference Range Interpretation Comments Blood Urea Nitrogen (test code = 11 mg/dL - 3094-0) [facility] HealthSerum or plasma creatinine measurement (mass/volume)2020-02-23 06:37:00 Test Item Value Reference Range Interpretation Comments Creatinine (test code = 2160-0) 0.7 mg/dL 0.6-1.1 [facility] [id number] 06:37:00 Test Item Value Reference Range Interpretation Comments Estimat Glomerular Filtration Rate 99 73-125 (test code = 01734-2) [facility] HealthSerum or plasma glucose measurement (mass/volume)2020-02-23 06:37:00 Test Item Value Reference Range Interpretation Comments Glucose Level (test code = 2345-7) 95 mg/dL 60-100 [facility] HealthSerum or plasma calcium measurement (mass/volume)2020-02-23 06:37:00 Test Item Value Reference Range Interpretation Comments Calcium Level (test code = 58349-6) 9.2 mg/dL 8.4-10.2 [facility] HealthSerum or plasma total bilirubin measurement (mass/volume) 2020-02-23 06:37:00 Test Item Value Reference Range Interpretation Comments Total Bilirubin (test code = 0.5 mg/dL 0.2-1.2 1975-2) [facility] HealthSerum or plasma aspartate aminotransferase measurement (enzymatic activity/volume)2020-02-23 06:37:00 Test Item Value Reference Range Interpretation Comments Aspartate Amino Transf (AST/SGOT) 22 U/L 5-34 (test code = 1920-8) [facility] HealthSerum or plasma alanine aminotransferase measurement (enzymatic activity/volume)2020-02-23 06:37:00 Test Item Value Reference Range Interpretation Comments Alanine Aminotransferase (ALT/SGPT) 20 U/L 0-55 (test code = 1742-6) [facility] HealthSerum or plasma protein measurement (mass/volume)2020-02-23 06:37:00 Test Item Value Reference Range Interpretation Comments Total Protein (test code = 2885-2) 7.7 g/dL 6.4-8.3 [facility] albumin measurement (mass/volume)2020-02-23 06:37:00 Test Item Value Reference Range Interpretation Comments Albumin (test code = 1751-7) 4.5 g/dL 3.5-5.0 [facility] plasma alkaline phosphatase measurement (enzymatic activity/volume)2020-02-23 06:37:00 Test Item Value Reference Range Interpretation Comments Alkaline Phosphatase (test code = 68 U/L 40-150 6768-6) [facility] plasma lipase measurement (enzymatic activity/volume) 2020-02-23 06:37:00 Test Item Value Reference Range Interpretation Comments Lipase (test code = 3040-3) 38 U/L 8-78 [facility] sodium measurement (moles/volume)2020-02-23 06:37:00 Test Item Value Reference Range Interpretation Comments Sodium Level (test code = 2951-2) 136 mmol/L [facility] plasma potassium measurement (moles/volume) 2020-02-23 06:37:00 Test Item Value Reference Range Interpretation Comments Potassium Level (test code = 3.7 mmol/L 2823-3) [facility] chloride measurement (moles/volume) 2020-02-23 06:37:00 Test Item Value Reference Range Interpretation Comments Chloride Level (test code = 103 mmol/L 5-0) [facility] total carbon dioxide measurement (moles/volume)2020-02-23 06:37:00 Test Item Value Reference Range Interpretation Comments Carbon Dioxide Level (test code = 25 mmol/L 8-9) [facility] anion gap determination (moles/volume) 2020-02-23 06:37:00 Test Item Value Reference Range Interpretation Comments Anion Gap (test code = 40585-4) [address] [facility] urea nitrogen measurement (mass/volume) 2020-02-23 06:37:00 Test Item Value Reference Range Interpretation Comments Blood Urea Nitrogen (test code = 11 mg/dL 3094-0) [facility] creatinine measurement (mass/volume) 2020-02-23 06:37:00 Test Item Value Reference Range Interpretation Comments Creatinine (test code = 2160-0) 0.7 mg/dL [facility] estimate [id number] 06:37:00 Test Item Value Reference Range Interpretation Comments Estimat Glomerular Filtration Rate 99 (test code = 93786-0) [facility] glucose measurement (mass/volume) 2020-02-23 06:37:00 Test Item Value Reference Range Interpretation Comments Glucose Level (test code = 2345-7) 95 mg/dL [facility] calcium measurement (mass/volume) 2020-02-23 06:37:00 Test Item Value Reference Range Interpretation Comments Calcium Level (test code = 94400-3) 9.2 mg/dL [facility] total bilirubin measurement (mass/volume) 2020-02-23 06:37:00 Test Item Value Reference Range Interpretation Comments Total Bilirubin (test code = 0.5 mg/dL 1975-2) [facility]. [facility] or plasma aspartate aminotransferase measurement (enzymatic activity/volume)2020-02-23 06:37:00 Test Item Value Reference Range Interpretation Comments Aspartate Amino Transf (AST/SGOT) 22 U/L (test code = 1920-8) [facility]. [facility] or plasma alanine aminotransferase measurement (enzymatic activity/volume)2020-02-23 06:37:00 Test Item Value Reference Range Interpretation Comments Alanine Aminotransferase (ALT/SGPT) 20 U/L (test code = 1742-6) [facility]. [facility] protein measurement (mass/volume) 2020-02-23 06:37:00 Test Item Value Reference Range Interpretation Comments Total Protein (test code = 2885-2) 7.7 g/dL [facility]. [facility] or plasma albumin measurement (mass/volume) 2020-02-23 06:37:00 Test Item Value Reference Range Interpretation Comments Albumin (test code = 1751-7) 4.5 g/dL [facility]. [facility] or plasma alkaline phosphatase measurement (enzymatic activity/volume)2020-02-23 06:37:00 Test Item Value Reference Range Interpretation Comments Alkaline Phosphatase (test code = 68 U/L 6768-6) [facility]. [facility] or plasma lipase measurement (enzymatic activity/volume)2020-02-23 06:37:00 Test Item Value Reference Range Interpretation Comments Lipase (test code = 3040-3) 38 U/L [facility] count (number/volume)2020-02-23 06:37:00 Test Item Value Reference Range Interpretation Comments White Blood Count (test code = 7.6 10*3/uL 6690-2) [facility] count (number/volume) 2020-02-23 06:37:00 Test Item Value Reference Range Interpretation Comments Red Blood Count (test code = 4.83 10*6/uL 789-8) [facility] (mass/volume)2020-02-23 06:37:00 Test Item Value Reference Range Interpretation Comments Hemoglobin (test code = 718-7) 14.4 g/dL [facility] hematocrit (volume fraction)2020-02-23 06:37:00 Test Item Value Reference Range Interpretation Comments Hematocrit (test code = 4544-3) 44.1 % [facility] mean corpuscular volume (MCV) [id number] 06:37:00 Test Item Value Reference Range Interpretation Comments Mean Corpuscular Volume (test code = 91 fL 787-2) [facility] mean corpuscular hemoglobin (mass per erythrocyte)2020-02-23 06:37:00 Test Item Value Reference Range Interpretation Comments Mean Corpuscular Hemoglobin (test 29.8 pg code = 785-6) [facility] mean corpuscular hemoglobin concentration measurement (mass/oad1161-66-63 06:37:00 Test Item Value Reference Range Interpretation Comments Mean Corpuscular Hemoglobin Concent 32.7 g/dL (test code = 786-4) [facility] distribution width [id number] 06:37:00 Test Item Value Reference Range Interpretation Comments Red Cell Distribution Width (test code 13.7 % = 788-0) [facility] platelet count (count/volume)2020-02-23 06:37:00 Test Item Value Reference Range Interpretation Comments Platelet Count (test code = 291 10*3/uL 777-3) [facility] platelet mean volume [id number] 06:37:00 Test Item Value Reference Range Interpretation Comments Mean Platelet Volume (test code = 10.1 48039-9) [facility] neutrophil count as percentage of total [id number] 06:37:00 Test Item Value Reference Range Interpretation Comments Neutrophils (%) (Auto) (test code = 58 % 770-8) [facility] immature granulocyte count as percentage of total [id number] 06:37:00 Test Item Value Reference Range Interpretation Comments Immature Granulocyte % (Auto) (test 0 % code = 72163-5) [facility] lymphocyte count as percentage of total [id number] 06:37:00 Test Item Value Reference Range Interpretation Comments Lymphocytes (%) (Auto) (test code = 31 % 736-9) [facility] monocyte count as percentage of total [id number] 06:37:00 Test Item Value Reference Range Interpretation Comments Monocytes (%) (Auto) (test code = 6 % 5905-5) [facility] eosinophil count as percentage of total lawkqrkteo3212-71-17 06:37:00 Test Item Value Reference Range Interpretation Comments Eosinophils (%) (Auto) (test code = 3 % 713-8) [facility] basophil count as percentage of total iosacknhql1357-26-85 06:37:00 Test Item Value Reference Range Interpretation Comments Basophils (%) (Auto) (test code = 1 % 706-2) [facility] nucleated erythrocyte count as percentage of total flrbvtofme1932-31-58 06:37:00 Test Item Value Reference Range Interpretation Comments Nucleated Red Blood Cells % (test code 0.0 % = 39474-4) [facility] neutrophil count (number/volume)2020-02-23 06:37:00 Test Item Value Reference Range Interpretation Comments Neutrophils # (Auto) (test code = 4.4 10*3/uL 751-8) [facility] immature granulocyte count as percentage of total [id number] 06:37:00 Test Item Value Reference Range Interpretation Comments Immature Granulocyte # (Auto) 0.0 10*3/uL (test code = 05629-8) [facility] lymphocyte count (number/volume)2020-02-23 06:37:00 Test Item Value Reference Range Interpretation Comments Lymphocytes # (Auto) (test code = 2.4 10*3/uL 731-0) [facility] monocytes automated count (number/volume)2020-02-23 06:37:00 Test Item Value Reference Range Interpretation Comments Monocytes # (Auto) (test code = 0.5 10*3/uL 742-7) [facility] eosinophil [id number] 06:37:00 Test Item Value Reference Range Interpretation Comments Eosinophils # (Auto) (test code = 0.3 10*3/uL 711-2) [facility] basophil count (number/volume)2020-02-23 06:37:00 Test Item Value Reference Range Interpretation Comments Basophils # (Auto) (test code = 0.1 10*3/uL 704-7) [facility] blood nucleated erythrocyte count (count/volume) 2020-02-23 06:37:00 Test Item Value Reference Range Interpretation Comments Nucleated Red Blood Cells # 0.00 10*3/uL (test code = 771-6) [facility] [id number] 06:37:00 Test Item Value Reference Range Interpretation Comments Manual Differential (test code = Not Ind 8265-1) [facility]
--- NOTE | 2022-05-06 11:38 | EDPHYS ---
Physician Documentation [facility] Name: Rima Reyes Age: 42 yrs Sex: Female : 1980 Arrival Date: 05/06/2022 Time: 11:05 Bed 5 Private MD: ED Physician Dwayne Hutson HPI: 05/06 11:32 This 42 yrs old Female presents to ER via Ambulatory with complaints of Congestion. en 11:32 Onset: The symptoms/episode began/occurred last week. 42yo F presents to ED with wet en cough, chest and nasal congestion x 3 days. Denies F/C/N/V. No SOB or wheezing. Denies ear ache, sore throat. Daughter with same URI sxs. 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 - Social history:: Smoking status: Patient denies any tobacco usage or history of. ROS: 11:32 Constitutional: Negative for fever, chills, and weight loss. en 11:32 Constitutional: Negative for body aches, chills, fatigue, fever. 11:32 Eyes: Negative for discharge. 11:32 ENT: Positive for sinus congestion, Negative for ear pain, sore throat. 11:32 Neck: Negative for stiffness. 11:32 Cardiovascular: Negative for chest pain. 11:32 Respiratory: Positive for cough, Negative for hemoptysis, shortness of breath, wheezing. 11:32 Abdomen/GI: Negative for nausea, vomiting, and diarrhea. 11:32 Neuro: Negative for headache. Exam: 11:32 Constitutional: This is a well developed, well nourished patient who is awake, alert, en and in no acute distress. 11:32 Constitutional: The patient appears in no acute distress, alert, awake. 11:32 Head/face: Exam is negative for Sinus tenderness, is not appreciated. 11:32 Eyes: Conjunctiva: normal, no acute changes. 11:32 ENT: External ear(s): are unremarkable, Ear canal(s): are normal, TM's: are normal, Nose: no acute changes, External nose: no obvious acute abnormality, Turbinates: are normal, Mouth: Oral mucosa: pink and intact, moist, Posterior pharynx: is normal, Airway: normal, patent, Tonsils: are normal in appearance, no enlargement, no erythema, no exudate, Uvula: normal, midline. 11:32 Cardiovascular: Rate: normal, Rhythm: regular, Pulses: no pulse deficits are appreciated, Heart sounds: normal, no murmur, no rub, no gallop. 11:32 Respiratory: the patient does not display signs of respiratory distress, Respirations: normal, Breath sounds: are clear throughout. 11:32 Abdomen/GI: Inspection: abdomen appears normal, Bowel sounds: normal, Palpation: abdomen is soft and non-tender. 11:32 Neuro: Exam negative for acute changes, Orientation: is normal, appropriate for stated age, no acute changes. Vital Signs: 11:24 BP 143 / 97; Pulse 106; Resp 18; Temp 97.7; Pulse Ox 98% on R/A; Weight 68.04 kg; ph Height 5 ft. 6 in. (167.64 cm); 11:24 Body Mass Index 24.21 (68.04 kg, 167.64 cm) ph MDM: 11:19 Patient medically screened. [facility] 11:32 Differential diagnosis: viral Infection, bacterial infection, URI, bronchitis, en pneumonia. Data reviewed: and as a result, I will discharge patient. ED course: reviewed viral URI. Will d/c home with supportive care and ER return precautions. Administered Medications: No medications were administered Disposition Summary: 05/06/22 11:37 Discharge Ordered Location: Home en Condition: Stable en Problem: new en Diagnosis - Acute upper respiratory infection, unspecified en Discharge Instructions: - Discharge Summary Sheet en - Viral Respiratory Infection en Forms: - Medication Reconciliation Form en - Thank You Letter en - Antibiotic Education en - Prescription Opioid Use en Prescriptions: - Zyrtec-D 5-120 mg Oral Tablet Sustained Release 12 hr - take 1 tablet by ORAL route every 12 hours As needed; 20 tablet; Refills: 0, en Product Selection Permitted - Tessalon Perles 100 mg Oral Capsule - take 1 capsule by ORAL route every 8 hours As needed; 15 capsule; Refills: 0, en Product Selection Permitted Signatures: Dwayne Hutson MD MD cha Hall, Patricia, RN RN ph [place], Jenny, PA PA en
--- NOTE | 2022-05-06 11:38 | ER ---
Nurse's Notes [facility] Name: Rima Reyes Age: 42 yrs Sex: Female : 1980 Arrival Date: 05/06/2022 Time: 11:05 Bed 5 Private MD: Diagnosis: Acute upper respiratory infection, unspecified Presentation: 05/06 11:24 Chief complaint: Patient states: Fever, nasal congestion w/ green mucus and mild cough ph that started "a few days ago." Tried OTC meds but became concerned about infection. Coronavirus screen: Vaccine status: Patient reports receiving the 1st dose of the Covid vaccine. Ebola Screen: No symptoms or risks identified at this time. Initial Sepsis Screen: Does the patient meet any 2 criteria? No. Patient's initial sepsis screen is negative. Does the patient have a suspected source of infection? No. Patient's initial sepsis screen is negative. Risk Assessment: Do you want to hurt yourself or someone else? Patient reports no desire to harm self or others. Onset of symptoms was May 06, 2022. 11:24 Method Of Arrival: Ambulatory ph 11:24 Acuity: YANELIS 4 ph Triage Assessment: 11:28 General: Appears in no apparent distress. comfortable, well groomed, Behavior is calm, ph cooperative, appropriate for age, Reports fever for 2-3 days. Pain: Denies pain. EENT: Reports nasal congestion nasal discharge that is green. Neuro: Level of Consciousness is awake, alert, obeys commands, Oriented to person, place, time, situation. Respiratory: Airway is patent Respiratory effort is even, unlabored. 11:56 Respiratory: Breath sounds are clear. 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 - Social history:: Smoking status: Patient denies any tobacco usage or history of. Screenin:55 Abuse screen: Denies threats or abuse. Nutritional screening: No deficits noted. ll1 Tuberculosis screening: No symptoms or risk factors identified. Fall Risk Total Verdin Fall Scale indicates No Risk (0-24 pts). Assessment: 11:55 Reassessment: No changes from previously documented assessment. Patient and/or family ll1 updated on plan of care and expected duration. Pain level reassessed. Patient is alert, oriented x 3, equal unlabored respirations, skin warm/dry/pink. Vital Signs: 11:24 BP 143 / 97; Pulse 106; Resp 18; Temp 97.7; Pulse Ox 98% on R/A; Weight 68.04 kg; ph Height 5 ft. 6 in. (167.64 cm); 11:24 Body Mass Index 24.21 (68.04 kg, 167.64 cm) ph ED Course: 11:05 Patient arrived in ED. rg4 11:18 Jenny Rueda PA is PHCP. en 11:19 Dwayne Hutson MD is Attending Physician. gifty 11:20 Daniel Bennett, NOLVIA is Primary Nurse. ll1 11:20 Arm band placed on Patient placed in an exam room, on a stretcher. ll1 11:27 Triage completed. ph 11:56 Patient has correct armband on for positive identification. Bed in low position. Call ll1 light in reach. Cardiac monitoring not applicable on this patient. 11:56 No provider procedures requiring assistance completed. Patient did not have IV access ll1 during this emergency room visit. Administered Medications: No medications were administered Medication: 11:56 VIS not applicable for this client. ll1 Outcome: 11:37 Discharge ordered by . en 11:56 Discharged to home ambulatory. ll1 11:56 Condition: stable 11:56 Discharge instructions given to patient, Instructed on discharge instructions, follow up and referral plans. medication usage, Demonstrated understanding of instructions, follow-up care, medications, Prescriptions given X 2. 11:56 Patient left the ED. ll1 Signatures: Dwayne Hutson MD MD cha Hall, Patricia RN RN Anai Wise rg4 Daniel Bennett RN RN ll1 Jenny Rueda PA PA en
[2022-05-06 12:07] VITALS: BP 143/97; TEMP 97.7; O2SAT 98
== END 2022-05-06 11:56 | disposition home or self-care (01) ==
LOC: ER 11:01
DX: J06.9 Acute upper respiratory infection, unspecified (principal); I10 Essential (primary) hypertension; F41.8 Other specified anxiety disorders
CPT/HCPCS: 99282